=== PATIENT | male | born 1975 | race Caucasian/White ===

== ENCOUNTER 2024-06-09 22:32 | Emergency (ER) | payer MEDICAID, SELFPAY ==
[2024-06-09 22:43] VITALS: BP 148/93; PULSE 113; O2SAT 97; BMI 31.9
--- NOTE | 2024-06-09 23:26 | CT_ITS ---
The [address] [address] Patient Name: DASHA JOSE MRN: [id number] date: 1975 Sex: M Assigned Patient Location: ER Current Patient Location: Accession/Order Number: [id number] Exam Date: 06/09/2024 23:52 Report Date: 06/10/2024 00:42 At the request of: GOGO MORRIS Procedure: CT abdomen pelvis wo con CT ABDOMEN PELVIS WITHOUT CONTRAST HISTORY: Hematuria COMPARISON: None. TECHNIQUE: Thin section axial CT images were obtained from the lung bases to the pubis symphysis. This CT exam was performed using one or more of the following dose reduction techniques: Automated exposure control, adjustment of the mA and/or kV according to patient size, or use of iterative reconstruction technique. Thin section coronal and sagittal images were reconstructed from the axial data set. All images were reviewed and interpreted. CONTRAST: None. FINDINGS: Assessment of solid organs is limited without the benefit of IV contrast. LUNG BASES: The lung bases are clear. GE JUNCTION AND STOMACH: Negative. No hiatal hernia. LIVER: There is severe diffuse hepatic steatosis with mild hepatic enlargement. No hepatic mass or cyst. GALLBLADDER AND BILIARY TREE: Cholecystectomy. No biliary tract dilation. SPLEEN: Negative. PANCREAS: Negative. ADRENALS: Negative. KIDNEYS AND URETERS: Negative. No urinary tract calculi or hydronephrosis. No renal masses or cysts are evident. SMALL BOWEL: Unremarkable. No enteritis or obstruction or wall thickening. LARGE BOWEL: Mild colonic stool burden. No obvious diverticulosis. No colitis or large bowel distention. APPENDIX: The appendix is not clearly identified and there are no secondary findings to suggest acute appendicitis.. Patient may have had prior appendectomy. Correlate with surgical history. AORTA: The abdominal aorta is normal size. IVC: Negative. LYMPH NODES: There is no lymphadenopathy. BLADDER: Borderline mild urinary bladder wall thickening with some trace stranding around bladder. Correlate urinalysis to exclude signs of cystitis. No bladder mass or retained calculus is seen on this noncontrast study. BONES: L4-5 discectomy and graft placement across the disc with posterior fixation with bilateral pedicle screws and rods. Decompression laminectomies of L4. Fixed anterolisthesis of L4 on L5. No hardware complications. No acute osseous findings. No destructive or blastic bone process. COMMENTS: No ascites. No free air. CT/CT abdomen pelvis wo con IMPRESSION: 1. Query mild acute cystitis. Correlate urinalysis. 2. No urinary tract calculi or hydronephrosis. 3. Cholecystectomy. Patient may have had prior appendectomy. Correlate with surgical history. 4. Hepatic steatosis and mild hepatic enlargement. Electronically authenticated by: DIYA FOX Date: 06/10/2024 00:42
--- NOTE | 2024-06-09 23:26 | ED.MALEGU1 ---
HPI - Male Genitourinary General Stated complaint: BLOOD IN URINE Time Seen by Provider: 06/09/24 23:10 Source: patient Mode of arrival: walk-in Limitations: no limitations History of Present Illness HPI Narrative: patient presents complaining of hematuria for past couple of days. also has dysuria. no fever or flank pain. No nausea or vomiting Related Data Allergies Allergy/AdvReac Type Severity Reaction Status Date / Time No Known Drug Allergies Allergy Verified 06/09/24 22:45 Review of Systems ROS Status of ROS 10 or more systems reviewed and unremarkable except as noted in history and below Exam Constitutional Vital Signs, click to edit/add: Last Vital Signs Pulse 113 H 06/09/24 22:43 Resp 18 06/09/24 22:43 BP 148/93 H 06/09/24 22:43 Pulse Ox 97 06/09/24 22:43 O2 Del Method Room Air 06/09/24 22:43 Common normals: no apparent distress, average body habitus, oriented x3, no limitations, healthy appearing, alert and well nourished [facility] Common normals: normocephalic and head/scalp atraumatic Eye Common normals: EOMs intact bilaterally and conjunctivae normal Respiratory Common normals: normal respiratory effort, no retractions, no use of accessory muscles and clear to auscultation bilaterally Cardio Common normals: regular rate, regular rhythm, S1 normal heart sound and S2 normal heart sound GI Common normals: Normal to inspection, nondistended, normoactive bowel sounds present, soft to palpation and non-tender Extremity Common normals: normal to inspection and full ROM Neuro Common normals: oriented x3, CN's II-XII intact bilaterally, moves all extremities and no focal motor deficits Psych Appearance: grossly normal Course Vital Signs Vital signs: Vital Signs Pulse Rate 113 H 06/09/24 22:43 Respiratory Rate 18 06/09/24 22:43 Blood Pressure 148/93 H 06/09/24 22:43 Pulse Oximetry 97 06/09/24 22:43 Oxygen Delivery Method Room Air 06/09/24 22:43 Pulse Rate 113 H 06/09/24 22:43 Respiratory Rate 18 06/09/24 22:43 Blood Pressure 148/93 H 06/09/24 22:43 Pulse Oximetry 97 06/09/24 22:43 Oxygen Delivery Method Room Air 06/09/24 22:43 MDM - Male Genitourinary MDM Narrative Medical decision making narrative: patient presents with hematuria for a couple of days and discomfort with urination. UA positive. CT with findings of cystitis. Patient medicated with Levaquin and discharged home to follow up with his doctor Lab Data Labs: Lab Results 06/10/24 Range/Units 00:30 Urine Color Lt. yellow (YELLOW) Urine Clarity Clear (CLEAR) Urine pH 6.0 (5.0-9.0) Ur Specific [place] >=1.030 A (1.005-1.025) Urine Protein 100 A (NEG/TRACE) mg/dL Urine Glucose (UA) Negative (NEGATIVE) mg/dL Urine Ketones Trace A (NEGATIVE) mg/dL Urine Occult Blood Large A (NEGATIVE) Urine Nitrite Positive A (NEGATIVE) Urine Bilirubin Negative (NEGATIVE) Urine Urobilinogen 1.0 (0.2-1.0) EU/dL Ur Leukocyte Esterase Moderate A (NEGATIVE) Imaging Data Abdominal x-ray: Radiologist's impression: ITS Impressions Abdomen/Pelvis CT 06/09/24 23:26 IMPRESSION: 1. Query mild acute cystitis. Correlate urinalysis. 2. No urinary tract calculi or hydronephrosis. 3. Cholecystectomy. Patient may have had prior appendectomy. Correlate with surgical history. 4. Hepatic steatosis and mild hepatic enlargement. Electronically authenticated by: DIYA FOX Date: 06/10/2024 00:42 Discharge Plan Discharge Stand Alone Forms: Portal Instructions Clinical Impression: Acute cystitis with hematuria Patient Disposition: Home, Self-Care Print Language: Kiswahili Instructions: Urinary Tract Infection in Men (ED) Additional Instructions: follow up with your doctor next week for recheck Referrals: BESS SRIVASTAVA [Primary Care Provider] - 1 week
[2024-06-10 00:52] LABS: Bilirubin Urine NEGATIVE (NEGATIVE); Blood Urine LARGE (NEGATIVE); Clarity Urine CLEAR (CLEAR); Color Urine LT. YELLOW (YELLOW); Glucose Urine UA NEGATIVE (NEGATIVE); Ketones Urine TRACE mg/dL (NEGATIVE); Leukocyte Esterase Urine MODERATE (NEGATIVE); Nitrite Urine POSITIVE (NEGATIVE); Protein Urine 100 mg/dL (NEG/TRACE); Specific Gravity Urine >=1.030 (1.005-1.025)
[2024-06-10 00:56] LABS: Urine Microscopic Indicated YES
[2024-06-10 01:04] LABS: Bacteria Urine MODERATE #/HPF (NONE SEEN); Cast Seen? SEEN #/LPF (NONE SEEN); Crystals Seen? None Seen #/HPF (None Seen); Hyaline Casts Urine FEW; Mucus Urine SMALL (NONE SEEN); Squamous Epithelial Cell Urine NONE SEEN #/LPF (NONE/RARE); Urine Culture Indicated YES; WBC Urine >100 #/HPF (NONE SEEN)
[2024-06-10] MEDS: LEVOFLOXACIN 500 MG TABLET PO (01:08)
== END 2024-06-10 01:20 | disposition home or self-care (01) ==
PROVIDERS: Emergency Provider Internal Medicine; PCP Family Medicine
DX: N30.01 Acute cystitis with hematuria (principal)
CPT/HCPCS: 36415; 74176; 80048; 81001; 87086; 87150; 87186; 99284